=== PATIENT | male | born 1985 | race African-American/Black ===

== ENCOUNTER 2017-08-21 12:18 | Emergency (ER) | payer SELFPAY ==
[~2017-08-21] VITALS: Ht 188 cm; Wt 79.1 kg
[2017-08-21 12:42] LABS: HEMATOCRIT 39.9 % (38.0-50.0); HEMOGLOBIN 14.3 G/DL (12.5-16.6); MCH 32.6 PG (29.0-34.0); MCHC 35.8 G/DL (30.0-36.0); MCV 90.9 FL (86-99); PLATELET COUNT 230 K/uL (156-360); RBC DIS.WIDTH-CV 12.9 % (11.8-14.6); RBC DIS.WIDTH-SD 43.4 % (39-53); RED BLOOD COUNT 4.39 M/uL (4.00-5.50); WHITE BLOOD COUNT 9.3 K/uL (4.1-10.2)
[2017-08-21 12:53] LABS: ALBUMIN 4.1 g/dL (3.2-4.8); CHLORIDE 101 mEq/L (99-109); POTASSIUM 3.2 mEq/L (3.7-5.4); SODIUM 137 mEq/L (136-147)
[2017-08-21 12:55] LABS: GLUCOSE 111 mg/dL (70-99); TOTAL PROTEIN 7.4 g/dL (6.4-8.3)
[2017-08-21 12:57] LABS: TOTAL BILIRUBIN 0.5 mg/dL (0.0-1.0)
[2017-08-21 12:59] LABS: ALKALINE PHOSPHATASE 60 IU/L (3-129); CREATININE 1.1 mg/dL (0.6-1.3)
[2017-08-21 13:00] LABS: GFR ESTIMATE (CALCULATED) > 59 mL/min/ (58.99-99999); UREA NITROGEN (BUN) 9 mg/dL (9-23)
[2017-08-21 13:01] LABS: AST (GOT) 17 IU/L (2-34)
[2017-08-21 13:02] LABS: ALT (GPT) 14 IU/L (3-49)
[2017-08-21 14:17] LABS: APPEARANCE CLEAR ((CLEAR)); BILIRUBIN NEGATIVE; BLOOD NEGATIVE; COLOR STRAW ((YELLOW)); GLUCOSE (STRIP) NEGATIVE; KETONES 5; LEUKOCYTES NEGATIVE; NITRITE NEGATIVE; PROTEIN (STRIP) NEGATIVE; SPECIFIC GRAVITY 1.039 (1.000-1.030); UCUL ADDED? NO; UROBILINOGEN 0.2 MG/DL (0.2-1.0)
[2017-08-21] MEDS ORDERED: KEFLEX500 MG PO (15:57)
[2017-08-21 16:10] VITALS: BP 119/63
== END 2017-08-21 16:11 | disposition home or self-care (01) ==
LOC: EME 12:18
DX: L76.22 Postprocedural hemorrhage of skin and subcutaneous tissue following other procedure (principal); F17.200 Nicotine dependence, unspecified, uncomplicated; Z90.49 Acquired absence of other specified parts of digestive tract; Z95.9 Presence of cardiac and vascular implant and graft, unspecified
CPT/HCPCS: 74177; 80053; 81003; 85027; 99281; 99285; J3010; J7030